=== PATIENT | female | born 1950 | race Hispanic/Latino ===

== ENCOUNTER 2017-03-20 06:17 | Day surgery (SDC) | payer MEDICARE ==
[2017-03-19 12:25] VITALS: BP 126/66
[2017-03-19 12:40] LABS: BASOPHILS % (AUTO) 0.4 % (0.0-5.0); HEMATOCRIT 40.6 % (36-48); LYMPHOCYTES % (AUTO) 30.7 % (21.0-51.0); MEAN CORPUSCULAR HEMOGLOBIN 30.2 pg (27.0-33.0); MEAN CORPUSCULAR HGB CONC 34.7 g/dL (32.0-36.0); NEUTROPHILS % (AUTO) 61.9 % (40.0-77.0); PLATELET COUNT (AUTO) 214 K/uL (130-400); RED BLOOD CELL COUNT(AUTO) 4.67 MIL/uL (4.00-5.50); RED CELL DISTRIBUTION WIDTH 14.8 % (11.0-15.5); WHITE BLOOD COUNT (AUTO) 6.5 K/uL (4.8-10.8)
[2017-03-19 12:52] LABS: CREATININE 0.7 mg/dL (0.5-1.5); POTASSIUM 4.3 mmol/L (3.5-5.1)
[2017-03-20] VITALS (16 sets, daily range): BP systolic 109–140; BP diastolic 61–74
[~2017-03-20] VITALS: Ht 156.2 cm; Wt 61.2 kg
[~2017-03-20 06:17] MED LIST: DICL2100G TP; OMEP20CA10 PO; TRAM50TA4 PO
[2017-03-20] MEDS ORDERED: MELA5TAB14 PO (07:07)
[2017-03-20] MEDS ORDERED: CLINDAMYCIN 900 MG/D5% WATER 50 ML IV ONE (07:16)
[2017-03-20] MEDS ORDERED: LACTATED RINGERS 1000ML 1,000 ML IV ONE (07:17)
[2017-03-20] MEDS ORDERED: MIDAZOLAM HCL 1 MG/ML 2ML VIAL ONE (07:52)
[2017-03-20] MEDS ORDERED: PROPOFOL 10 MG/ML 20ML VIAL IV ONE (07:52)
[2017-03-20] MEDS ORDERED: FENTANYL CITRATE PF 50 MCG/1 ML 2ML VIAL ONE (07:53)
[2017-03-20] MEDS ORDERED: CLINDAMYCIN PHOSPHATE 150 MG/ML 6ML VIAL ONE (08:40)
[2017-03-20] MEDS ORDERED: DEXAMETHASONE SOD PHOSPHATE 10MG/ML 1ML VIAL ONE (09:15)
[2017-03-20] MEDS ORDERED: ONDANSETRON HCL 4 MG/2 ML VIAL ONE (09:15)
[2017-03-20] MEDS ORDERED: LIDOCAINE PF 2% 5ML ABBOJECT ONE (09:16)
[2017-03-20] MEDS ORDERED: MEPERIDINE-PF 25 MG/ML SYG ONE (09:50)
== END 2017-03-20 11:15 | disposition home or self-care (01) ==
LOC: SUH 06:17 → DAH 06:17 → SUH 11:15
PROVIDERS: ATTEND Orthopaedic Surgery
DX: M65.312 Trigger thumb, left thumb (principal); M06.9 Rheumatoid arthritis, unspecified; M19.90 Unspecified osteoarthritis, unspecified site; M81.0 Age-related osteoporosis without current pathological fracture; M19.049 Primary osteoarthritis, unspecified hand; Z98.890 Other specified postprocedural states; Z88.0 Allergy status to penicillin
CPT/HCPCS: 26055; 36415; 80048; 85025; A4649; A4930; A6223; J1100; J2001; J2175; J2250; J2405; J2704; J3010; J3490; J7120

== ENCOUNTER → 2018-02-05 | Outpatient (CLI) | payer BC, MEDICARE ==
[~2018-02-05] MED LIST changes: +MELA5TAB14 PO
== END | disposition home or self-care (01) ==
LOC: RAH 12:45
PROVIDERS: ATTEND Family Medicine
DX: Z12.31 Encounter for screening mammogram for malignant neoplasm of breast (principal); M19.90 Unspecified osteoarthritis, unspecified site; Z72.89 Other problems related to lifestyle
CPT/HCPCS: 77067

== ENCOUNTER → 2018-04-13 | Outpatient (CLI) | payer BC, MEDICARE | END | disposition home or self-care (01) | LOC: RAH 13:04 | PROVIDERS: ATTEND Orthopaedic Surgery | DX: Z47.1 Aftercare following joint replacement surgery (principal); Z96.641 Presence of right artificial hip joint | CPT/HCPCS: 73700 ==

== ENCOUNTER → 2019-10-24 | Outpatient (CLI) | payer BC ==
[~2019-10-24] MED LIST changes: -OMEP20CA10 PO; +OMEP20CA12 PO
== END | disposition home or self-care (01) ==
LOC: SHCH 12:36
PROVIDERS: ATTEND Internal Medicine Cardiovascular Disease
DX: R60.9 Edema, unspecified (principal)
CPT/HCPCS: 93970

== ENCOUNTER → 2021-11-11 | Outpatient (CLI) | payer BC, MEDICARE ==
[~2021-11-11] MED LIST changes: +ATOR10 PO; +CELE-84 PO; +GABA-529 PO; +LEVO-70 PO; -OMEP20CA12 PO; +TOLT2TAB20 PO; -TRAM50TA4 PO
== END | disposition home or self-care (01) ==
LOC: RAH 09:35
PROVIDERS: ATTEND Internal Medicine Gastroenterology
DX: K21.9 Gastro-esophageal reflux disease without esophagitis (principal); K44.9 Diaphragmatic hernia without obstruction or gangrene; R10.10 Upper abdominal pain, unspecified; R14.0 Abdominal distension (gaseous)
CPT/HCPCS: 74240

== ENCOUNTER → 2022-01-23 | Outpatient (CLI) | payer BC, MEDICARE ==
[2022-01-23 09:36] LABS: BASOPHILS % (AUTO) 0.4 % (0.0-5.0); HEMATOCRIT 42.3 % (36-48); LYMPHOCYTES % (AUTO) 34.7 % (21.0-51.0); MEAN CORPUSCULAR HEMOGLOBIN 30.1 pg (27.0-33.0); MEAN CORPUSCULAR VOLUME 86.2 fL (79-99); NEUTROPHILS % (AUTO) 54.7 % (40.0-77.0); PLATELET COUNT (AUTO) 202 K/uL (130-400); RED BLOOD CELL COUNT(AUTO) 4.91 MIL/uL (4.00-5.50); RED CELL DISTRIBUTION WIDTH 14.5 % (11.0-15.5); WHITE BLOOD COUNT (AUTO) 5.5 K/uL (4.8-10.8)
[2022-01-23 09:47] LABS: CREATININE 0.7 mg/dL (0.5-1.5); POTASSIUM 4.2 mmol/L (3.5-5.1)
[2022-01-23 09:48] LABS: INR 0.98 (0.85-1.15); PROTHROMBIN TIME 10.7 SEC (9.6-11.6)
[2022-01-23 09:50] LABS: PARTIAL THROMBOPLASTIN TIME 29.3 SEC (26.3-35.5)
== END | disposition home or self-care (01) ==
LOC: LAB 08:19
PROVIDERS: ATTEND Internal Medicine Cardiovascular Disease
DX: I87.2 Venous insufficiency (chronic) (peripheral) (principal)
CPT/HCPCS: 36415; 80048; 85025; 85610; 85730

== ENCOUNTER → 2023-03-11 | Outpatient (CLI) | payer BC ==
[~2023-03-11] MED LIST changes: +CELE-125 PO; -CELE-84 PO
== END | disposition home or self-care (01) ==
LOC: SHCH 08:01
PROVIDERS: ATTEND Internal Medicine Cardiovascular Disease
DX: I73.9 Peripheral vascular disease, unspecified (principal); I87.2 Venous insufficiency (chronic) (peripheral)
CPT/HCPCS: 93925; 93970

== ENCOUNTER 2023-10-18 23:12 | Emergency (ER) | payer BC, MEDICARE ==
[~2023-10-18] VITALS: Ht 157.5 cm; Wt 63.5 kg
[~2023-10-18 23:12] MED LIST changes: -MELA5TAB14 PO; +MELA5TAB66 PO
[2023-10-18] MEDS: LORAZEPAM 2 MG/ML 1 ML VIAL IVP ONE (23:53)
[2023-10-18 23:57] LABS: BASOPHILS # (AUTO) 0.01 K/uL (0.00-0.20); BASOPHILS % (AUTO) 0.2 % (0.0-5.0); EOSINOPHILS # (AUTO) 0.05 K/uL (0.00-0.70); HEMATOCRIT 39.2 % (36-48); IMMATURE GRANULOCYTE ABSOLUTE 0.01 K/uL (0-1); LYMPHOCYTES # (AUTO) 1.4 K/uL (1.0-4.8); LYMPHOCYTES % (AUTO) 26.1 % (21.0-51.0); MEAN CORPUSCULAR HEMOGLOBIN 31.2 pg (27.0-33.0); MEAN CORPUSCULAR HGB CONC 35.7 g/dL (32.0-36.0); MEAN CORPUSCULAR VOLUME 87.3 fL (79-99); MONOCYTES # (AUTO) 0.3 K/uL (0.1-1.0); MONOCYTES % (AUTO) 6.3 % (3.0-13.0); NEUTROPHILS # (AUTO) 3.5 K/uL (1.8-7.7); NEUTROPHILS % (AUTO) 66.2 % (40.0-77.0); PLATELET COUNT (AUTO) 173 K/uL (130-400); RED BLOOD CELL COUNT(AUTO) 4.49 MIL/uL (4.00-5.50); RED CELL DISTRIBUTION WIDTH 13.3 % (11.0-15.5); WHITE BLOOD COUNT (AUTO) 5.2 K/uL (4.8-10.8)
[2023-10-19 00:10] LABS: CREATININE 0.8 mg/dL (0.5-1.0); POTASSIUM 3.5 mmol/L (3.5-5.1)
[2023-10-19 00:15] LABS: ALBUMIN 3.7 g/dL (3.5-5.0); BILIRUBIN,TOTAL 0.6 mg/dL (0.2-1.0); MAGNESIUM 1.8 mg/dL (1.80-2.40); TOTAL PROTEIN, SERUM 6.6 g/dL (6.0-8.3)
[2023-10-19 01:25] VITALS: BP 141/64; PULSE 91; RESP 18; O2SAT 100
== END 2023-10-19 01:40 | disposition home or self-care (01) ==
LOC: EDH 23:12
DX: T78.1XXA Other adverse food reactions, not elsewhere classified, initial encounter (principal); F22 Delusional disorders; R41.0 Disorientation, unspecified; M19.90 Unspecified osteoarthritis, unspecified site; I10 Essential (primary) hypertension; E78.00 Pure hypercholesterolemia, unspecified; Z79.899 Other long term (current) drug therapy; Z95.5 Presence of coronary angioplasty implant and graft; Z96.611 Presence of right artificial shoulder joint; X58.XXXA Exposure to other specified factors, initial encounter
CPT/HCPCS: 99284; 96374; 71045; 83735; 84484; 80053; 85025; 36415; 93005; J2060

== ENCOUNTER → 2024-05-06 | Outpatient (CLI) | payer MEDICARE ==
[~2024-05-06] MED LIST changes: -ATOR10 PO; +BACL10TA PO; +CARB-38 PO; -DICL2100G TP; +DICL50TA9 PO; -LEVO-70 PO; -MELA5TAB66 PO; +OMEP40CA21 PO; -TOLT2TAB20 PO
[2024-05-06 15:34] LABS: CREATININE 0.6 mg/dL (0.5-1.0); POTASSIUM 4.4 mmol/L (3.5-5.1)
== END | disposition home or self-care (01) ==
LOC: LAB 11:17
PROVIDERS: ATTEND Internal Medicine Cardiovascular Disease
DX: I50.9 Heart failure, unspecified (principal); R60.9 Edema, unspecified
CPT/HCPCS: 36415; 80048; 83880

== ENCOUNTER 2024-08-05 04:54 | Emergency (ER) | payer MEDICARE ==
[~2024-08-05] VITALS: Ht 147.3 cm; Wt 56.7 kg
--- NOTE | 2024-08-05 05:12 | ERN ---
ED Note History of Present Illness Stated Complaint: RT HIP PAIN Chief Complaint: Hip Pain/Injury Time Seen by MD: 05:03 Dictation: This is a 73-year-old female with multiple medical problems presented to the emergency room complaining of right lower back and right hip pain that has been going on for awhile but got worse today she apparently took tramadol at 2:15 a.m. and decided to come into the ER for evaluation. No history of any falls or injury of any sort. No history of any burning micturition no fevers chills or rigors. Temperature 98.2 pulse 88 respirations 16 blood pressure 136/76 with a pulse oximetry of 99% on room air Her chronic medical problems include osteoarthritis, Parkinson's disease, hypertension, coronary artery disease status post stents and extensive joint bess geries Allergies: Coded Allergies: No Known Drug Allergies (Unverified Allergy, Unknown, 10/19/22) Home Meds Reported Medications Diclofenac Sodium (Diclofenac Sodium) 50 Mg Tablet.dr, 50 MG PO [id number] PRN for PAIN LEVEL 1 TO 5, TAB 01/05/24 Baclofen (Baclofen) 10 Mg Tablet, 10 MG PO BID, TAB 01/05/24 Celecoxib (Celecoxib) 200 Mg Capsule, 200 MG PO BID, CAP 01/05/24 Gabapentin (Gabapentin) 100 Mg Capsule, 100 MG PO BID, CAP 01/05/24 Omeprazole (Omeprazole) 40 Mg Capsule.dr, 40 MG PO ACBKFST, CAP 01/05/24 Carbidopa/Levodopa (Carbidopa-Levo 25-100 mg Odt) 25 Mg-100 Mg Tab.rapdis, 1 EACH PO TID, TAB 01/05/24 Past Medical History Past Medical History: Arthritis, CAD, High Cholesterol, Hypertension, Other Additional Past Medical Hx: PARKINSONS, SEPSIS Surgical History: Other Surgical History Other: L FOOT, R HIP, L KNEE,R SHOULDER , CARDIAC STENTS, BILATERAL HANDS Family History: Negative Social History: Negative History: Not Applicable RN Note Reviewed/Agreed w/PFSH: Yes Review of System Dictation Constitutional: Negative for fever,chills, and weight loss Eyes: Negative for injury, pain,redness, and discharge ENT: Negative for injury,pain or swelling Cardiovascular: Negative for chest pain, palpitations, and edema Respiratory: Negative for shortness of breath, cough, and wheezing, Abdomen/GI: Negative for abdominal pain, nausea, vomiting, diarrhea, and constipation Back: Negative for injury and positive for lower back pain on the right : Negative for injury, bleeding and discharge MS/Extremity: Negative for injury and deformity positive for right hip pain Skin: Negative for rash, and discoloration Neuro: Negative for headache, weakness, numbness, tingling, and seizure Psych: Negative for suicide ideation, homicidal ideation, and hallucinations Initial Vital Sign VS Vital Signs Date Time Temp Pulse Resp B/P (MAP) Pulse Ox O2 Delivery O2 Flow Rate FiO2 08/05/24 04:55 98.2 88 16 136/76 99 Room Air 08/05/24 05:05 0 21 Physical Exam Dictation General: awake, alert, NAD Head/Face: Normocephalic, atraumatic Eyes: PERRL, EOMI, vision at baseline ENT: oral cavity clear, TMs clear, no signs of infection Neck: Trachea midline, supple, no nuchal rigidity Cardiovascular: RRR, normal S1/S2, No MRGs, no JVD Respiratory: CTAB, no respiratory distress, No rales or wheezes Abdomen: Soft, non-tender, non-distended, normal bowel sounds, no guarding or rebound. Skin: Warm, dry, normal turgor, no rash MS/Extremity: Pulses equal, no cyanosis, neurovascular intact, FROM Neuro: COAx4, GCS 15, strength 5/5, CN 2-12 intact, normal cerebellar exam, normal gait, Psych: Normal behavior, mood, and affect normal Extremities-trace edema without any palpable cords, Homans sign is negative Results (Laboratory/Radiology) Laboratory/Radiology Laboratory Tests Test 08/05/24 05:30 White Blood Count 10.0 K/uL (4.8-10.8) Red Blood Count 4.59 MIL/uL (4.00-5.50) Hemoglobin 14.3 g/dL (12.0-16.0) Hematocrit 40.2 % (36-48) Mean Corpuscular Volume 87.6 fL (79-99) Mean Corpuscular Hemoglobin 31.2 pg (27.0-33.0) Mean Corpuscular Hemoglobin Concent 35.6 g/dL (32.0-36.0) Red Cell Distribution Width 14.5 % (11.0-15.5) Platelet Count 187 K/uL (130-400) Mean Platelet Volume 10.3 fL (7.5-10.5) Immature Granulocyte % (Auto) 0.2 % (0-1) Neutrophils (%) (Auto) 81.1 % (40.0-77.0) H Lymphocytes (%) (Auto) 11.9 % (21.0-51.0) L Monocytes (%) (Auto) 6.0 % (3.0-13.0) Eosinophils (%) (Auto) 0.7 % (0.0-8.0) Basophils (%) (Auto) 0.1 % (0.0-5.0) Neutrophils # (Auto) 8.1 K/uL (1.8-7.7) H Lymphocytes # (Auto) 1.2 K/uL (1.0-4.8) Monocytes # (Auto) 0.6 K/uL (0.1-1.0) Eosinophils # (Auto) 0.07 K/uL (0.00-0.70) Basophils # (Auto) 0.01 K/uL (0.00-0.20) Absolute Immature Granulocyte (auto 0.02 K/uL (0-1) Nucleated Red Blood Cells 0.0 % (0.0-0.19) Sodium Level 140 mmol/L (136-145) Potassium Level 3.7 mmol/L (3.5-5.1) Chloride Level 103 mmol/L (101-111) Carbon Dioxide Level 31 mmol/L (21-32) Blood Urea Nitrogen 19 mg/dL (7-18) H Creatinine 0.8 mg/dL (0.5-1.0) Glomerular Filtration Rate Calc 78 mL/min (>90) Random Glucose 102 mg/dL (70-105) Total Calcium 8.5 mg/dL (8.5-10.1) Labs Reviewed?: Yes ED Course ED Course Orders Procedure Category Date Status Time Cbc With Differential LAB 08/05/24 Complete 05:06 Basic Metabolic Panel LAB 08/05/24 Complete 05:06 Urinalysis Profile LAB 08/05/24 Logged 05:06 Ketorolac PHA 08/05/24 Complete Tromethamine 15mg/Ml 05:30 Hip Unilat 2-3vw Right RAD 08/05/24 Taken 05:18 Morphine 2mg Syg PHA 08/05/24 In Process (Morphine 2mg Syg) 07:00 Current Medications Medications (Trade) Dose Ordered Sig/Ashley Route PRN Reason Start Time Stop Time Status Last Admin Dose Admin Ketorolac Tromethamine (toRADol) 15 mg ONCE ONCE IV 08/05/24 05:30 08/05/24 05:31 DC 08/05/24 05:21 Morphine Sulfate (morPHINE 2MG SYG) 2 mg ONCE ONCE IVP 08/05/24 07:00 08/05/24 07:01 08/05/24 06:36 Vital Signs Date Time Temp Pulse Resp B/P (MAP) Pulse Ox O2 Delivery O2 Flow Rate FiO2 08/05/24 05:05 98.8 114 20 140/69 98 Room Air* 0 21 08/05/24 04:55 98.2 88 16 136/76 99 Room Air We will perform diagnostic labs, advanced imaging and administer medications according to the patient's complaint. Once the results are available, will review and personally interpreted the labs to rule out any acute life-threa tening emergency the trach require immediate intervention and treatment. I will then re-evaluate the patient after treatment and diagnostic exams have return to determine whether the patient requires any further testing, can safely be discharged home or need further admission to hospital for additional treatment and evaluation. Labs reviewed CBC BNP 7 is with a normal limits X-ray of the hip and pelvis-no fractures dislocations. Right prosthetic joint in place. I updated the patient and her and her pain is significantly improved and I will discharge her to follow up with her primary care physician for optimal pain management referral. Apparently she is already followed by spine surgeon who is planning epidural injections on her. Medical Decision Making MDM MDM: Differential diagnosis: Lumbar radiculopathy, renal colic, arthritic pain, pyelonephritis, paraspinal muscle spasm Rationale: Tests considered and ordered secondary to shared decision making include: Previous outside records reviewed: Old ER visits. Risk of complication and/or morbidity or mortality of patient management: None Medications-Per medication reconciliation Need for hospitalization: Patient does not meet criteria for hospitalization. Need for emergency major/minor surgery: No There are no social concerns with this patient. Prescription drug management Prescriptions will include symptomatic care Patient's prior external medical records from other ER visits were reviewed by me as indicated. Prior testing and results from previous visits were reviewed. Prior tests were taken into account with medical decision making and resource utilization, independent historian/historians were used to obtain complete medical history. I independently interpreted the test that were performed, results were reviewed by me and considered findings on radiology if ordered. Medical management and examination interpretation discussions were had by me with other qualified healthcare professionals as indicated for the patient's care. Problem List Problem List: (1) Chronic radicular pain of lower back (2) Chronic pain of right hip DX & DISP Disposition: Discharge Departure Impression: Primary Impression: Chronic radicular pain of lower back Additional Impression: Chronic pain of right hip Condition: Stable Additional Instructions: Patient and the caregiver have been informed of all the diagnostic tests and the imaging conducted during the today's visit to the emergency room and has verbalized understanding of the results I have personally reviewed and interpreted all diagnostic exams performed here in the ER today as well as the vital signs documented by the nursing staff. The patient is now being discharged to home and should follow up with the primary care physician or the specialist as directed by the ER staff. Follow-up with primary care provider in 1 to 2 days. Take medications as directed here in the emergency room. Okay to continue home medications unless otherwise discussed during your visit in the emergency room today. Return to your nearest emergency room if symptoms worsen or if there is no improvement. Call 911 if you need immediate assistance. Take Tylenol or Motrin over-the- counter as needed and if no contraindications are present. Increase oral hydration. A wound culture or urine culture was ordered here in the emergency room department please follow-up with primary care provider and advise them to get repeat ports from our facility. If you had any Homer wrap/splints that were applied here, please do not remove them until you see your primary care or specialty. Referrals: YANETH RASHID MD (PCP) KAREN NICHOLSON MD August 05, 2024 05:12
[2024-08-05] MEDS: ketOROlac 15MG/ML VIAL (15MG/ML) IV ONE (05:21)
[2024-08-05 05:35] LABS: BASOPHILS # (AUTO) 0.01 K/uL (0.00-0.20); BASOPHILS % (AUTO) 0.1 % (0.0-5.0); EOSINOPHILS # (AUTO) 0.07 K/uL (0.00-0.70); EOSINOPHILS % (AUTO) 0.7 % (0.0-8.0); HEMATOCRIT 40.2 % (36-48); IMMATURE GRANULOCYTE ABSOLUTE 0.02 K/uL (0-1); LYMPHOCYTES # (AUTO) 1.2 K/uL (1.0-4.8); LYMPHOCYTES % (AUTO) 11.9 % (21.0-51.0); MEAN CORPUSCULAR HEMOGLOBIN 31.2 pg (27.0-33.0); MEAN CORPUSCULAR HGB CONC 35.6 g/dL (32.0-36.0); MEAN CORPUSCULAR VOLUME 87.6 fL (79-99); MONOCYTES # (AUTO) 0.6 K/uL (0.1-1.0); NEUTROPHILS # (AUTO) 8.1 K/uL (1.8-7.7); NEUTROPHILS % (AUTO) 81.1 % (40.0-77.0); PLATELET COUNT (AUTO) 187 K/uL (130-400); RED BLOOD CELL COUNT(AUTO) 4.59 MIL/uL (4.00-5.50); RED CELL DISTRIBUTION WIDTH 14.5 % (11.0-15.5)
[2024-08-05 05:43] LABS: CREATININE 0.8 mg/dL (0.5-1.0); POTASSIUM 3.7 mmol/L (3.5-5.1)
[2024-08-05] MEDS: morPHINE 2 MG SYG IVP ONE (06:36)
[2024-08-05 07:02] VITALS: BP 132/62; PULSE 108; RESP 20; TEMP 98.8; O2SAT 99
--- NOTE | 2024-08-05 08:33 | HMCIMG ---
Exam Type: HIP UNILAT 2-3VW RIGHT History: hip pain h/o relacement 25 yrs ago Comparison: none Findings: There is status post hip replacement with adequate visualization and alignment of bony and hardware elements. No complications are seen. Bone density is preserved. No acute fractures or dislocations are seen. No blastic or lytic lesions or bones are identified. The soft tissues are unremarkable. Impression: No acute pathology.
[2024-08-05] MEDS ORDERED: GABA-529 PO (09:06)
[2024-08-05] MEDS ORDERED: ROSU10TA72 PO (09:06)
== END 2024-08-05 10:27 | disposition home or self-care (01) ==
LOC: EDH 04:54
DX: G89.29 Other chronic pain (principal); M54.16 Radiculopathy, lumbar region; M25.551 Pain in right hip; E78.00 Pure hypercholesterolemia, unspecified; G20.A1 Parkinson's disease without dyskinesia, without mention of fluctuations; I10 Essential (primary) hypertension; I25.10 Atherosclerotic heart disease of native coronary artery without angina pectoris; M19.90 Unspecified osteoarthritis, unspecified site; Z79.899 Other long term (current) drug therapy; Z95.5 Presence of coronary angioplasty implant and graft; Z98.890 Other specified postprocedural states
CPT/HCPCS: 99284; 96374; 96375; 80048; 85025; 36415; 73502; J1885; J2270